=== PATIENT | female | born 1995 ===

== ENCOUNTER 2020-12-14 14:26 | Emergency (ER) | payer SELFPAY ==
[~2020-12-14] VITALS: Ht 157.5 cm; Wt 77.3 kg
[2020-12-14] MEDS ORDERED: P EP PO (14:33)
[2020-12-14 14:46] LABS: GLUCOSE,POINT OF CARE 135 MG/DL (70-110)
[2020-12-14 14:50] VITALS: BP 129/63
== END 2020-12-14 15:12 | disposition left against medical advice (07) ==
LOC: EMS 14:26
DX: F43.21 Adjustment disorder with depressed mood (principal); F12.90 Cannabis use, unspecified, uncomplicated
CPT/HCPCS: 99283